=== PATIENT | female | born 1945 | race Caucasian/White ===

== ENCOUNTER 2020-03-24 01:19 | Outpatient (CLI) | payer MEDICARE, SELFPAY ==
--- NOTE | 2020-03-24 09:15 | DI.NM_ITS ---
APPROVED REPORT Exam: Exercise Treadmill Patient Location: Out-Patient Room/Bed: Stress Nurse: Lidia Salinas RN BMI: 27.40 Baseline Rhythm: Sinus Rhythm, PVC's Indications: Palpitations, Atrial Fibrillation, CAD Medical History Medical History: Atrial Fibrillation, CAD non obstructive, HTN, Hyperlipidemia Cardiac Medications: Losartan, Metoprolol succinate/ Toprol XL, Spironolactone/ Aldactone, Warfarin/ Coumadin, Jantoven Allergies: sulfa Cardiac Risk Factors: HTN, Hyperlipidemia, FHX of CAD, CVD Pretest Chest Pain Characteristics: No chest pain Exercise History: Indeterminate Lung Sounds: Clear to auscultation Heart Sounds: Irregular Stress Test Details Test: Exercise stress testing was performed using a Rory protocol. Nuclear Acquisition: Rest Tc-99m/Stress Tc-99m 1 day Rest Isotope: Tc-99m Sestamibi. Dose: 12.1 Date: 03/24/2020 Injection Time: 0925 Stress Isotope: Tc-99m Sestamibi. Dose: 37 Date: 03/24/2020 HR Resting HR Supine: 77 bpm Max Heart Rate (APMHR): 145 bpm Resting HR Standin bpm Target HR (85% APMHR): 123 bpm Max HR Achieved: 148 bpm % of APMHR: 102 Recovery HR: 83 bpm HR response to stress: Normal HR response to stress BP Resting BP Supine: 112/78 mmHg Resting BP Standin/78 mmHg Max BP: 168/80 mmHg Recovery BP: 128/74 mmHg BP response to stress: Abnormal hypertensive response to stress. ECG Resting ECG: Sinus Rhythm Ectopy: pvc's Stress ECG: Sinus Tachycardia ST Change: Normal Arrhythmia: VPC's, APC's, Recovery ECG: Sinus Rhythm Recovery Arrhythmia: APC, VPC Clinical Reason for Termination: Target HR Achieved Stress Symptoms: General Fatigue Exercise duration: 03 min18 sec Highest Stage Reached: Stage 2: 2.5 mph at 12% grade. Exercise capacity: 4.98 METs Functional Capacity: Mildly deminished capacity Stress ECG Conclusion 1. The patient exercised for 3 minutes (5 METS). The patient no symptoms suggestive of ischemia duri ng stress. 2. The baseline during stress was significantly affected by artifact. In the strips that can be seen there is no significant ST changes. Critical Notification Critical Value: No MPI Conclusion The patient's ejection fraction was 55% with stress. There were no wall motion abnormalities. Patient no evidence of ischemia on the imaging portion of the exam. There was a significant amount o f ectopy during stress and recovery. This represents a normal SPECT stress test. Radiologist Interpretation Radiologist agrees with Shearing Shed Hand's Interpretation. Radiologist Interpretation by: Emma Richards MD Interpretation Date/Time: 03/25/2020 14:04:41
== END 2020-03-24 01:39 ==
PROVIDERS: PCP Nurse Anesthetist, Certified Registered; Visit Provider Internal Medicine Interventional Cardiology
DX: I48.91 Unspecified atrial fibrillation (principal); R00.2 Palpitations; I25.10 Atherosclerotic heart disease of native coronary artery without angina pectoris; I10 Essential (primary) hypertension; Z82.49 Family history of ischemic heart disease and other diseases of the circulatory system; E78.5 Hyperlipidemia, unspecified; I49.1 Atrial premature depolarization; I49.3 Ventricular premature depolarization
CPT/HCPCS: 78452; 93016; 93018; 93017